=== PATIENT | male | born 1945 | race Caucasian/White ===

== ENCOUNTER → 2018-01-30 | Outpatient (CLI) | payer OTHER, MEDICARE ==
[~2018-01-30] VITALS: Ht 182.9 cm; Wt 77.1 kg
[~2018-01-30] MED LIST: GLUCOSAMINE CH1 EAC2 PO; LISINOPRIL10 MG PO; OMEGA-31000 M1 PO; PERCOCET PO; PRILOSEC 20 MG20 MG PO; ULTRA-LIGHT RO1 EACH; ZOCOR20 MG PO
--- NOTE | ~2018-01-30 | P ---
[facility] [place] [address] PROCEDURE REPORT Name: JASWANT GARBER JR Room #: REG [facility].#: [id number] Admission: 01/30/18 Attend Phys: Tay Valladares Discharge: Date of : 41 Report #: [id number] THIS REPORT FOR: //name// CC: Tay Moreno DATE OF SERVICE: 01/30/2018 PROCEDURE PERFORMED: Colonoscopy with biopsies. HISTORY OF PRESENT ILLNESS: The patient is a 73-year-old male with a history of colon polyps on last colonoscopy 5 years ago. Denies any symptoms. No family history of colon cancer. DESCRIPTION OF PROCEDURE: The risks and benefits of the procedure were explained to the patient, those risks including but not limited to bleeding, perforation, the risk of sedation. He understood these risks and gave informed consent. Sedation was given using propofol per anesthesia. Next, a digital rectal exam was initially performed, which was normal. Next, using a standard Olympus colonoscope, the scope was placed in the patient's anus and advanced under direct vision to the cecum. The overall prep was good. The cecum and ileocecal valve were normal in appearance. In the ascending colon, a few small diverticula were noted. No evidence of inflammation, otherwise normal. The transverse and descending colon were normal. In the sigmoid colon, a 4 mm sessile polyp was noted. This was removed with cold forceps. The rectal mucosa was normal. On retroflexion, small nonbleeding internal hemorrhoids were noted, otherwise normal colonoscopy. The scope was then withdrawn and the procedure terminated. The patient tolerated the procedure well. IMPRESSION: 1. Mild diverticulosis. 2. Small sigmoid colon polyp. 3. Internal hemorrhoids. 4. Otherwise, normal colonoscopy. RECOMMENDATIONS: 1. Await biopsy results. 2. If polyp is adenomatous polyp, repeat in 5 years. If hyperplastic, consider repeat colonoscopy in 10 years. Thank you for allowing me to participate in his care. <ELECTRONICALLY SIGNED> By: Tay Lopez MD 02/04/18 0903 [id number] 1821 Tay Lopez MD /nt
--- NOTE | ~2018-01-30 | PATH ---
Formerly [facility] [place] [address] PATHOLOGY RPT PROCEDURE Name: JASWANT GARBER Room #: REG [facility] M.R.#: [id number] Admission: 01/30/18 Date of : 41 Discharge: Report #: [id number] Path Case #: [id number] [facility] Accession Number: [id number] . 01 Material submitted: . POLYP AT SIGMOID COLON . 01 Clinician provided ICD-10: Z86.010 . 01 Clinical history: . Pre-OP DX: Hx polyps Post-OP DX: Colon polyps . 02 Diagnosis: Polyp, at sigmoid colon, endoscopic biopsy: - Compatible with a hyperplastic polyp and a lymphoid aggregate. - Negative for dysplasia. (IUV:pit 01/31/2018) QTP/01/31/2018 . 02 Electronically signed: . Angy Guzman MD, Pathologist NPI- [id number] . 01 Gross description: . Received in formalin labeled "Jaswant Garber Jr, polyp at sigmoid colon," are 3 segments of gaona soft tissue measuring 0.9 x 0.6 x 0.2 cm in aggregate dimensions and ranging from 0.4 to 0.5 cm in maximum dimension. The specimen is submitted entirely in cassette A1. (TSD; 01/30/2018) TOB/TOB . 02 Pathologist provided ICD-10: K63.5 . 02 CPT . 454804 Specimen Comment: A courtesy copy of this report has been sent to Specimen Comment: [phone], . Specimen Comment: Report sent to / DR BARLOW Performed at: [address] [id number] MD Jose Luis Escalante MD Phone: [phone] Performed at: 02 [facility] [address] [place] [address] PATHOLOGY RPT PROCEDURE Name: JASWANT GARBER BABS [id number]mission: 01/30/18 Date of : 41 Discharge: Report #: [id number] Path Case #: [id number] [address] [place] [id number] MD Angy Guzman MD Phone: [phone]
== END | disposition home or self-care (01) ==
LOC: GI 09:32
DX: Z12.11 Encounter for screening for malignant neoplasm of colon (principal); Z86.010 Personal history of colon polyps; K63.5 Polyp of colon; K57.30 Diverticulosis of large intestine without perforation or abscess without bleeding; K64.8 Other hemorrhoids; I10 Essential (primary) hypertension; K21.9 Gastro-esophageal reflux disease without esophagitis; E78.00 Pure hypercholesterolemia, unspecified; Z87.442 Personal history of urinary calculi; Z98.890 Other specified postprocedural states; Z79.899 Other long term (current) drug therapy; Z96.652 Presence of left artificial knee joint
CPT/HCPCS: 62110; 62900